=== PATIENT | female | born 1985 | race Caucasian/White ===

== ENCOUNTER → 2018-12-31 | Outpatient (CLI) | payer BC ==
[2016-08-23 09:44] VITALS: BMI 46.9
[~2018-12-31] MED LIST: ACE3 PO; AMO500 PO; CEPH250C37 PO; FAMO20TA28 PO; HYDR-3140 PO; HYDR-389 PO; IBU600 PO; IBU800 PO; IBUP600T22 PO; LEVO50TA80 PO; LOR5 PO; MET2 PO; NO MEDS; NO ROUTINE MEDS; ONDA4TAB PO; OXYC-865 PO; PER PO; PHEN200T32 PO; PREN-85 PO; PROM-110 PO; TAMS0.4C25 PO
== END ==
LOC: LAB 10:13
PROVIDERS: ATTEND Nurse Practitioner Family
DX: E03.9 Hypothyroidism, unspecified (principal)
CPT/HCPCS: 36415; 82465; 83718; 84439; 84443; 84478; 84480